=== PATIENT | female | born 1995 | race Caucasian/White ===

== ENCOUNTER 2016-03-23 03:10 | Inpatient (IN) | payer OTHER ==
[~2016-03-23] VITALS: Ht 165.1 cm; Wt 78.9 kg
[~2016-03-23 03:10] MED LIST: PRENATAL VITAMI1 T10 PO
[2016-03-23] MEDS ORDERED: PROMETHAZINE 25 MG/ML VIAL IVP PRN (03:50)
[2016-03-23] MEDS ORDERED: NALBUPHINE HYDROCHLORIDE 10 MG/ML VIAL IVP PRN (03:50)
[2016-03-23] MEDS ORDERED: METHYLERGONOVINE 0.2 MG/ML AMP IM PRN ×2 (03:50→16:45)
[2016-03-23] MEDS ORDERED: OXYTOCIN 20 UNITS/LR PREMIX 1,000 ML IV PRN (03:50)
[2016-03-23] MEDS ORDERED: CARBOPROST 250 MCG/ML AMP IM PRN (03:50)
[2016-03-23 05:57] VITALS: BP 106/61
[2016-03-23] MEDS ORDERED: NALBUPHINE HYDROCHLORIDE 10 MG/ML VIAL ONE (07:04)
[2016-03-23] MEDS ORDERED: ROPIVACAINE 0.2%/NS PREMIX 250 ML EPI ONE (08:28)
[2016-03-23] MEDS: LACTATED RINGERS 1,000 ML IV SCH ×2 (08:40→14:29)
--- NOTE | 2016-03-23 10:05 | NUR ---
PATIENT HAS BEEN SCREENED AND CATEGORIZED LOW NUTRITION RISK. PATIENT WILL BE SEEN WITHIN 7 DAYS OF ADMISSION. 03/29/[address]
[2016-03-23] MEDS ORDERED: TERBUTALINE 1 MG/ML VIAL SUBQ ONE ×2 (10:22→10:26)
[2016-03-23] MEDS ORDERED: AMPICILLIN 2,000 MG in NACL 0.9% 100 ML IV SCH (14:25)
[2016-03-23] MEDS ORDERED: AMPICILLIN 2,000 MG VIAL ONE (14:28)
[2016-03-23] MEDS ORDERED: OXYTOCIN 20 UNITS/LR PREMIX 1,000 ML IV ONE (16:05)
[2016-03-23] MEDS ORDERED: OXYTOCIN 10 UNITS/ML VIAL ONE (16:05)
[2016-03-23] MEDS ORDERED: MEASLES, MUMPS, AND RUBELLA 1 VIAL SQVAC PRN (16:45)
[2016-03-23] MEDS ORDERED: OXYTOCIN 10 UNITS/ML VIAL IM ONE (16:45)
[2016-03-23] MEDS ORDERED: BENZOCAINE/MENTHOL 20%-0.5% 60 GM CAN TP PRN (16:45)
[2016-03-23] MEDS ORDERED: WITCH HAZEL 40 PAD PACKAGE TP PRN (16:45)
[2016-03-23] MEDS ORDERED: TEMAZEPAM 15 MG CAP PO PRN (16:45)
[2016-03-23] MEDS ORDERED: HYDROcodone/APAP 5/325 MG 1 TAB TAB PO PRN (16:45)
[2016-03-23] MEDS ORDERED: AMPICILLIN 1,000 MG in NACL 0.9% 50 ML IV SCH (18:30)
[2016-03-23] MEDS ORDERED: DOCUSATE SOD/SENNA 50/8.6 MG 1 TAB PO SCH (21:00)
[2016-03-23] MEDS: IBUPROFEN 800 MG TAB PO PRN (21:20)
[2016-03-24] MEDS: oxyCODONE/APAP 5/325 MG 1 TAB TAB PO PRN ×3 (02:55→20:59)
[2016-03-24] MEDS ORDERED: MOTRIN600 MG PO (13:29)
[2016-03-25] MEDS: IBUPROFEN 800 MG TAB PO PRN (14:21)
== END 2016-03-25 15:25 | disposition home or self-care (01) | DRG 560 ==
LOC: MFCC 03:10
PROVIDERS: ADMIT Obstetrics & Gynecology; ATTEND Obstetrics & Gynecology
PROC: 10E0XZZ Delivery of Products of Conception, External Approach (ICD-10-PCS; principal; 2016-03-23)
PROC: 3E033VJ Introduction of Other Hormone into Peripheral Vein, Percutaneous Approach (ICD-10-PCS; 2016-03-23)
PROC: 10907ZC Drainage of Amniotic Fluid, Therapeutic from Products of Conception, Via Natural or Artificial Opening (ICD-10-PCS; 2016-03-23)
PROC: 3E0S3CZ (ICD-10-PCS; 2016-03-23)
PROC: 00HU33Z Insertion of Infusion Device into Spinal Canal, Percutaneous Approach (ICD-10-PCS; 2016-03-23)
PROC: 3E0234Z Introduction of Serum, Toxoid and Vaccine into Muscle, Percutaneous Approach (ICD-10-PCS; 2016-03-23)
PROC: 0W8NXZZ Division of Female Perineum, External Approach (ICD-10-PCS; 2016-03-23)
DX: O80 Encounter for full-term uncomplicated delivery (principal); Z23 Encounter for immunization; Z37.0 Single live birth; Z3A.40 40 weeks gestation of pregnancy